=== PATIENT | female | born 1985 | race Caucasian/White ===

== ENCOUNTER 2022-02-17 13:13 | Emergency (ER) | payer MEDICAID ==
[~2022-02-17] VITALS: Ht 162.6 cm; Wt 59.0 kg
[2022-02-17 13:46] LABS: HEMATOCRIT 40.6 % (31.2-41.9); MEAN CORPUSCULAR VOLUME 92.2 fL (75.5-95.3); PLATELET COUNT (AUTO) 259 K/uL (179-408)
[2022-02-17 14:03] LABS: CARBON DIOXIDE 23 mmol/L (21-32); CHLORIDE 104 mmol/L (98-107); CREATININE 0.7 mg/dL (0.6-1.3); GLUCOSE 86 mg/dL (74-106); POTASSIUM 3.8 mmol/L (3.5-5.1); UREA NITROGEN, BLOOD 15 mg/dL (7-18)
== END 2022-02-17 14:45 | disposition home or self-care (01) ==
LOC: ER 13:13
DX: R07.9 Chest pain, unspecified (principal); I34.0 Nonrheumatic mitral (valve) insufficiency
CPT/HCPCS: 36415; 71045; 84484; 85025; 93005; A4663

== ENCOUNTER 2023-07-14 17:52 | Emergency (ER) | payer MEDICAID, OTHER ==
[~2023-07-14] VITALS: Ht 162.6 cm; Wt 59.0 kg
[2023-07-14 18:14] VITALS: O2SAT 100
[2023-07-14] MEDS ORDERED: AMOX500T2 PO (18:20)
[2023-07-14] MEDS ORDERED: CARB15DR12 RIGHT EAR (18:20)
== END 2023-07-14 18:41 | disposition home or self-care (01) ==
LOC: ER 17:54
DX: H66.91 Otitis media, unspecified, right ear (principal); F41.9 Anxiety disorder, unspecified; Z79.899 Other long term (current) drug therapy
CPT/HCPCS: A4606; A4663

== ENCOUNTER 2024-05-04 08:23 | Emergency (ER) | payer MEDICAID ==
[~2024-05-04] VITALS: Ht 162.6 cm; Wt 58.1 kg
[~2024-05-04 08:23] MED LIST: AMOX500T2 PO; CARB15DR12 RIGHT EAR
[2024-05-04 09:08] LABS: BASOPHILS % (AUTO) 0.7 % (0.0-2.0); EOSINOPHILS % (AUTO) 1.1 % (0.0-7.0); HEMATOCRIT 39.6 % (31.2-41.9); HEMOGLOBIN 13.6 g/dL (10.9-14.3); LYMPHOCYTES # (AUTO) 0.9 K/uL (0.8-4.8); LYMPHOCYTES % (AUTO) 21.2 % (20.5-51.5); MEAN CORPUSCULAR HEMOGLOBIN 31.6 uug (24.7-32.8); MEAN CORPUSCULAR HGB CONC 34 g/dL (32.3-35.6); MEAN CORPUSCULAR VOLUME 91.9 fL (75.5-95.3); MONOCYTES # (AUTO) 0.3 K/uL (0.1-1.30); MONOCYTES % (AUTO) 7.7 % (0.0-11.0); NEUTROPHILS % (AUTO) 69.3 % (38.5-71.5); PLATELET COUNT (AUTO) 219 K/uL (179-408); RED BLOOD CELL COUNT(AUTO) 4.31 MIL/uL (3.63-4.92); RED CELL DISTRIBUTION WIDTH 13.2 % (12.3-17.7); WHITE BLOOD COUNT (AUTO) 4.3 K/uL (3.8-11.8)
[2024-05-04 09:16] LABS: DIFFERENTIAL COMMENT 1
[2024-05-04 09:22] LABS: CALCIUM 9.1 mg/dL (8.5-10.1); CREATININE 0.9 mg/dL (0.6-1.3); POTASSIUM 4.3 mmol/L (3.5-5.1)
[2024-05-04 09:30] VITALS: O2SAT 99
[2024-05-04] MEDS ORDERED: ALBUTEROL SULFATE 2.5 MG/3 ML NEBU ONE (09:30)
[2024-05-04] MEDS ORDERED: IPRATROPIUM BROMIDE 0.5 MG/2.5 ML NEBU ONE (09:30)
[2024-05-04] MEDS: ALBUTEROL SULFATE 2.5 MG/3 ML NEBU NEB ONE (09:39)
[2024-05-04] MEDS: IPRATROPIUM BROMIDE 0.5 MG/2.5 ML NEBU NEB ONE (09:39)
[2024-05-04] MEDS ORDERED: FLUT12AE5 INH (09:56)
[2024-05-04] MEDS ORDERED: ALBU6.7H9 INH (09:56)
[2024-05-04] MEDS ORDERED: ACET1TAB23 PO (09:56)
[2024-05-04 10:12] VITALS: BP 110/62; TEMP 98; O2SAT 99
== END 2024-05-04 10:20 | disposition home or self-care (01) ==
LOC: ER 08:23
DX: J20.8 Acute bronchitis due to other specified organisms (principal); B97.89 Other viral agents as the cause of diseases classified elsewhere; R07.89 Other chest pain; Z79.51 Long term (current) use of inhaled steroids
CPT/HCPCS: 36415; 71045; 85025; A4606; A4663; J3590

== ENCOUNTER 2024-12-04 09:00 | Emergency (ER) | payer MEDICAID ==
[~2024-12-04] VITALS: Ht 162.6 cm; Wt 59.9 kg
[~2024-12-04 09:00] MED LIST changes: +ACET1TAB23 PO; +ALBU6.7H9 INH; +FLUT12AE5 INH
[2024-12-04] MEDS ORDERED: IBUPROFEN 600 MG TABLET ONE (09:45)
[2024-12-04] MEDS: IBUPROFEN 600 MG TABLET PO ONE (09:48)
[2024-12-04 10:40] VITALS: BP 149/87; TEMP 98.1; O2SAT 98
== END 2024-12-04 10:41 | disposition home or self-care (01) ==
LOC: ER 09:00
DX: J02.8 Acute pharyngitis due to other specified organisms (principal); B97.89 Other viral agents as the cause of diseases classified elsewhere; F41.9 Anxiety disorder, unspecified; R51.9 Headache, unspecified; Z79.51 Long term (current) use of inhaled steroids; Z86.79 Personal history of other diseases of the circulatory system
CPT/HCPCS: 86403; 87070; A4606; A4663